=== PATIENT | female | born 1985 | race Caucasian/White ===

== ENCOUNTER 2016-11-04 15:03 | Emergency (ER) | payer SELFPAY ==
[~2016-11-04] VITALS: Ht 160 cm; Wt 90.0 kg
[~2016-11-04 15:03] MED LIST: ALPR-138 PO; Z.0.NO CURRENT MEDS
[2016-11-04 15:05] VITALS: BP 160/97; PULSE 113; RESP 16; TEMP 97.9; O2SAT 99
== END 2016-11-04 16:45 | disposition left against medical advice (07) ==
LOC: NED 15:03
DX: R68.89 Other general symptoms and signs (principal)
CPT/HCPCS: 99281